=== PATIENT | male | born 1960 | race American Indian/Alaskan Native ===

== ENCOUNTER 2024-07-26 07:22 | Outpatient (CLI) | payer MEDICARE, MEDICAID ==
[~2024-07-26 07:22] MED LIST: ASPI-611 PO; ATOR40TA PO; CALC1CAP21 PO; FLO0.4C PO; FLUT1BLS3 INH; HYDR-3964 PO; IPRA4AER PO; LINA5TAB4 PO; LISI20TA28 PO; METF-438 PO; METO100T7 PO; MONT-40 PO; MULT-1085 PO; NIFE-73 PO; PANT40TA54 PO; PRAM0.253 PO; TRIA1CAP88 PO
[2024-07-26 08:09] VITALS: PULSE 62; RESP 15; O2SAT 96
== END 2024-07-26 23:59 | disposition home or self-care (01) ==
LOC: RT 07:22
PROVIDERS: ATTEND Family Medicine
DX: J44.9 Chronic obstructive pulmonary disease, unspecified (principal)
CPT/HCPCS: 94010; 94760